=== PATIENT | female | born 1950 | race Caucasian/White ===

== ENCOUNTER 2018-10-15 15:54 | Emergency (ER) | payer OTHER, MEDICARE ==
[2018-10-15 16:04] VITALS: BP 146/61; PULSE 77; TEMP 98; BMI 29.9
--- NOTE | 2018-10-15 16:27 | PDOC ---
History of Present Illness - General History Source: Patient Exam Limitations: No Limitations - History of Present Illness Initial Comments: 10/15/18 16:58 The patient is a 67 year old female, who presents to the emergency department with 2 weeks of left knee pain. The patient states 2 weeks ago when she was in [place] she was standing on her bed trying to reach for an object when she fell off of the bed and landed straight down on her LLE injuring her left knee. The patient states she had an x-ray performed of the LLE and was advised she had a sprained ligament and to see her doctor after returning home. The patient states earlier this morning she had an outpatient MRI of the left knee which reported a lateral tibial plateau fracture. The patient states she notified her Dr Sherman who advised her to come to the ED for evaluation. The patient states she has been ambulating with a cane with pain. The patient also has an additional complaint of urinary urgency and frequency. The patient denies any flank pain or back pain. Denies any dysuria or hematuria. The patient denies chest pain, shortness of breath, headache and dizziness. Denies fever, chills, nausea, vomit, diarrhea and constipation. Allergies: NKA PCP: Dr Sherman <Navjot Ordoñez - Last Filed: 10/15/18 17:16> <Mery Pinon - Last Filed: 10/15/18 17:54> - General Chief Complaint: Injury Stated Complaint: LEFT KNEE PAIN Time Seen by Provider: 10/15/18 16:21 Past History <Navjot Ordoñez - Last Filed: 10/15/18 17:16> - Past Medical History COPD: No - Suicide/Smoking/Psychosocial Hx Smoking History: Never smoked Have you smoked in the past 12 months: No Information on smoking cessation initiated: No Hx Alcohol Use: No Drug/Substance Use Hx: No <Mery Pinon - Last Filed: 10/15/18 17:54> - Past Medical History Allergies/Adverse Reactions: Allergies Allergy/AdvReac Type Severity Reaction Status Date / Time No Known Allergies Allergy Verified 10/15/18 16:01 Review of Systems - Review of Systems Comments:: 10/15/18 17:01 GENERAL/CONSTITUTIONAL: No fever or chills. No weakness. HEAD, EYES, EARS, NOSE AND THROAT: No change in vision. No ear pain or discharge. No sore throat. CARDIOVASCULAR: No chest pain or shortness of breath. RESPIRATORY: No cough, wheezing, or hemoptysis. GASTROINTESTINAL: No nausea, vomiting, diarrhea or constipation. GENITOURINARY: (+) Urinary urgency and frequency. No dysuria or hematuria. MUSCULOSKELETAL: (+) Left knee pain. No neck or back pain. SKIN: No rash NEUROLOGIC: No headache, vertigo, loss of consciousness, or change in strength/ sensation. ENDOCRINE: No increased thirst. No abnormal weight change. HEMATOLOGIC/LYMPHATIC: No anemia, easy bleeding, or history of blood clots. ALLERGIC/IMMUNOLOGIC: No hives or skin allergy. <Navjot Ordoñez - Last Filed: 10/15/18 17:16> *Physical Exam - Vital Signs Last Vital Signs Temp Pulse Resp BP Pulse Ox 98 F 77 18 146/61 97 10/15/18 15:55 10/15/18 15:55 10/15/18 15:55 10/15/18 15:55 10/15/18 15:55 - Physical Exam Comments: 10/15/18 17:02 GENERAL: Awake, alert, and fully oriented, in no acute distress HEAD: No signs of trauma EYES: PERRLA, EOMI, sclera anicteric, conjunctiva clear ENT: Auricles normal inspection, hearing grossly normal, nares patent, oropharynx clear without exudates. Moist mucosa NECK: Normal ROM, supple, no lymphadenopathy, JVD, or masses LUNGS: Breath sounds equal, clear to auscultation bilaterally. No wheezes, and no crackles HEART: Regular rate and rhythm, normal S1 and S2, no murmurs, rubs or gallops ABDOMEN: Soft, nontender, normoactive bowel sounds. No guarding, no rebound. No masses BACK: No midline spinal tenderness. EXTREMITIES: Hip is nontender. Full range of motion of the left knee. (+) Lateral fibular tenderness to palpation. (+) Minimal medial tenderness. No effusion. No laxity. Left ankle is nontender with full range of motion. Full range of motion in all four extremities. No clubbing or cyanosis. No cords or erythema. NEUROLOGICAL: Cranial nerves II through XII intact. Normal speech. SKIN: No lacerations or erythema. Warm, Dry, normal turgor, no rashes or lesions noted. <Navjot Ordoñez - Last Filed: 10/15/18 17:16> - Vital Signs Last Vital Signs Temp Pulse Resp BP Pulse Ox 98 F 77 18 146/61 97 10/15/18 15:55 10/15/18 15:55 10/15/18 15:55 10/15/18 15:55 10/15/18 15:55 <Mery Pinon - Last Filed: 10/15/18 17:54> Medical Decision Making - Medical Decision Making 10/15/18 17:[address] Sherman at [address] Young, covering physician, returned page immediately. Case discussed. Call placed to Orthopedics Dr. Derrek Evangelista at 4 pm. Page returned immediately. Case discussed. <Navjot Ordoñez - Last Filed: 10/15/18 17:16> - Medical Decision Making 10/15/18 16:27 67 yo F with injury while in [place] 2 weeks agok, fell while standing on a bed , onto extended left knee. c/o knee pain. had eval in ed 2 weeks ago with xray negative. persistant pain, so had outpt mri today. called by dr. young for positive tibial plateau fx. mild pain, improved with tylenol. able to straingthen and bend. no hip or ankle injury. no new neck or back pain. on exam mils lateral and medial inferior knee ttp. no effusion or eccymosis, hip and ankle nt fom plan ortho consult will see in ed. xray. pain control 10/15/18 17:54 ua negative for uti. <Mery Pinon - Last Filed: 10/15/18 17:54> *DC/Admit/Observation/Transfer - Attestations Scribe Attestion: 10/15/18 17:03 Documentation prepared by Navjot Ordoñez, acting as biomedical equipment tech for Mery Pinon MD. <Navjot Ordoñez - Last Filed: 10/15/18 17:16> - Discharge Dispostion Decision to Admit order: No <Mery Pinon - Last Filed: 10/15/18 17:54> Diagnosis at time of Disposition: Tibial plateau fracture, left - Discharge Dispostion Disposition: HOME Condition at time of disposition: Improved - Referrals Referrals: Derrek Evangelista DO [Staff Physician] - - Patient Instructions Printed Discharge Instructions: DI for Tibial Plateau Fracture Additional Instructions: you should not put any weight on your left leg. elevate to reduce swelling when at rest. use crutches. take tylenol 500 mg every 6 hrs as you have been for pain. follow up with DR Alejo in 1 -2 weeks. call to schedule. see referral information for the phone number . return for any problems or concerns.
[2018-10-15] MEDS ORDERED: ACETAMINOPHEN 500 MG TABLET (FP) PO ONE (16:33)
[2018-10-15] MEDS ORDERED: ACETAMINOPHEN 500 MG TABLET (FP) ONE (16:35)
[2018-10-15 17:47] LABS: PH,URINE 5.5 (4.5-8); URINE APPEARANCE Clear; URINE BILIRUBIN Negative (NEGATIVE); URINE COLOR Yellow; URINE GLUCOSE (UA) Negative (NEGATIVE); URINE KETONE Negative (NEGATIVE); URINE LEUK ESTERASE TRACE (NEGATIVE); URINE NITRITE Negative (NEGATIVE); URINE PROTEIN Negative (NEGATIVE); URINE UROBILINOGEN 0.2 (0.2-1.0)
--- NOTE | 2018-10-15 18:35 | PN ---
Progress Note (short form) - Note Progress Note: ORTHOPEDIC SURGERY CONSULTATION NOTE CHIEF COMPLAINT Left leg pain HISTORY OF PRESENT ILLNESS Ms. Carey is a 67 year old female who presents to [facility] ER with a left leg pain. The orthopedic service was consulted for a left tibial plateau fracture. The injury occurred when she was in [place]. She took a fall onto her left leg, in an extended position, and consequently fell onto her bent knee. The patient notes significant sharp pain on the anterolateral tibial plateau, with radiation anteriorly and inferiorly. Her pain improves with rest. Denies any other injuries. Denies numbness, tingling or other constitutional complaints. The patient is retired.. Denies/Endorses tobacco use, drug use, alcohol abuse. The patient lives with her , and uses no assistive devices at baseline. She states she has been walking on her leg with a cane in [place] for the past 2 weeks. PAST MEDICAL HISTORY Denies SURGICAL HISTORY Denies FAMILY HISTORY Denies SOCIAL HISTORY Denies tobacco use, drug use, and alcohol abuse. MEDICATIONS Denies ALLERGIES NKDA REVIEW OF SYMPTOMS A twelve-point review of systems was performed and was negative except as noted in HPI. PHYSICAL EXAM Constitutional: Alert and oriented to person, place, and time. Appears well- developed and well-nourished. No acute distress, appropriate mood and affect. Bilateral Upper Extremity: No TTP all joints, FROM w/o pain all joints. Right Lower Extremity: No TTP all joints, FROM w/o pain all joints. Left Lower Extremity: Skin warm, dry, and intact; no lesions, rashes or ulcers noted. Muscle mass equal and symmetric to contralateral side. No atrophy noted. No masses or effusions noted. Tender to palpation at the proximal anterolateral portion of the tibia. She is nontender throughout rest of extremity. No cords or calf tenderness No significant calf/ankle edema. Full passive and active ROM, free from pain. Joints stable with no pathologic laxity. EHL/TA/GS motor intact; SILT distally; 2+ DP pulses; Cap refill brisk. Tone and reflexes normal. VITAL SIGNS Vital Signs Period Temp Pulse Resp BP Sys/Asif Pulse Ox Last 24 Hr 98 F 77 18 146/61 97 IMAGING I personally reviewed all radiographs of her left leg, and a Left knee MRI, They demonstrate a non-displaced left tibial plateau fracture. There are no dislocations, subluxations, bony lesions seen. There is minimal arthritis in the knee. ASSESSMENT AND PLAN Ms. Carey is a 67 year old female with a left tibial plateau fracture - non- displaced. - Pain Control - NWB LLE on crutches - A bulky balderrama knee immobilizer was placed on the patient's left leg and she tolerated it well. - The patient may remove the knee immobilizer while in bed, or while sitting at home. She is to reapply it when moving around or going outdoors. - The patient can follow up in our office in 1-2 weeks. She can call [phone] for an appointment. She will need to obtain X-rays before her office visit. - Rest/Ice/Elevate Left knee. Thank you for involving us in the care of your patient. Francois Fox, DO Orthopedic Surgery
[2018-10-15 19:13] LABS: URINE RBC 0-2 /hpf (0-3)
[2018-10-15 19:14] LABS: AMORP URATES 1+ /hpf (NONE SEEN); EPI CELLS FEW /HPF; URINE BACTERIA 1+ /hpf (NEGATIVE)
== END 2018-10-15 18:05 | disposition home or self-care (01) ==
LOC: FER 15:54
DX: S82.142A Displaced bicondylar fracture of left tibia, initial encounter for closed fracture (principal); X58.XXXA Exposure to other specified factors, initial encounter; Y93.89 Activity, other specified; Y92.89 Other specified places as the place of occurrence of the external cause
CPT/HCPCS: 73564-TC-LT-FY; 73590-TC-LT-FY; 73721-LT-TC; 81003; 81015; 99284-25

== ENCOUNTER 2021-11-04 09:41 | Inpatient (IN) | payer OTHER, MEDICARE ==
[2021-11-04] MEDS ORDERED: ACETAMINOPHEN 1000 MG/100 ML BAG IVPB ONE (11:14)
[2021-11-04] MEDS ORDERED: FAMOTIDINE 20 MG/50 ML IVPB 20 MG/50 ML MG IVPB ONE ×2 (11:14→11:48)
[2021-11-04] MEDS ORDERED: LACTATED RINGERS SOLUTION 1000 ML INFUS.BAG IV ONE (11:14)
[2021-11-04] MEDS ORDERED: MAG HYDROX/AL HYDROX/SIMETH 30 ML UNIT-DOSE CUP PO ONE (11:14)
[2021-11-04] MEDS ORDERED: ONDANSETRON 4 MG/2 ML VIAL IVPUSH ONE (12:06)
[2021-11-04] MEDS ORDERED: ONDANSETRON 4 MG/2 ML VIAL ONE (12:26)
[2021-11-04 12:32] LABS: URINE APPEARANCE CLEAR; URINE BILIRUBIN NEGATIVE (NEGATIVE); URINE COLOR YELLOW; URINE GLUCOSE (UA) NEGATIVE (NEGATIVE); URINE KETONE TRACE (NEGATIVE); URINE LEUK ESTERASE NEGATIVE (NEGATIVE); URINE NITRITE NEGATIVE (NEGATIVE); URINE PROTEIN NEGATIVE (NEGATIVE); URINE UROBILINOGEN 0.2 mg/dL (0.2-1.0)
[2021-11-04 13:06] LABS: BASO % 0.6 % (0-2.0); EOS % 0.2 % (0-4.5); HEMATOCRIT 40.5 % (32.4-45.2); HEMOGLOBIN 13.4 GM/dL (10.7-15.3); LYMPH % 10.9 % (8-40); MCH 29.6 pg (25.7-33.7); MCHC 33.1 g/dl (32.0-36.0); MEAN CELL VOLUME 89.3 fl (80-96); MEAN PLT VOLUME 9.3 fl (7.5-11.1); MONO % 3.9 % (3.8-10.2); NEUT % 84.4 % (42.8-82.8); PLATELET COUNT 319 10^3/uL (134-434); RBC 4.54 M/mm3 (3.60-5.2); RDW 14.4 % (11.6-15.6); WHITE BLOOD COUNT 11.6 K/mm3 (4.0-10.0)
[2021-11-04 13:21] LABS: BLOOD UREA NITROGEN 10.3 mg/dL (7-18)
[2021-11-04 13:22] LABS: ALBUMIN 2.8 g/dl (3.4-5.0)
[2021-11-04 13:24] LABS: CREATININE 0.6 mg/dL (0.55-1.3)
[2021-11-04 13:27] LABS: BILIRUBIN,TOTAL 0.3 mg/dL (0.2-1); TOT PROT 6.9 g/dl (6.4-8.2)
[2021-11-04] MEDS ORDERED: SODIUM CHLORIDE 1,000 ML IV SCH (13:45)
[2021-11-04] MEDS: SODIUM CHLORIDE 1,000 ML IV SCH (14:00)
[2021-11-04] MEDS ORDERED: ACETAMINOPHEN 325 MG TABLET (FP) PO PRN (20:25)
[2021-11-04 21:43] LABS: BASO % 0.9 % (0-2.0); EOS % 1.2 % (0-4.5); HEMATOCRIT 37.2 % (32.4-45.2); HEMOGLOBIN 12.6 GM/dL (10.7-15.3); LYMPH % 19.4 % (8-40); MEAN CELL VOLUME 88.1 fl (80-96); MEAN PLT VOLUME 8.7 fl (7.5-11.1); MONO % 7.9 % (3.8-10.2); NEUT % 70.6 % (42.8-82.8); PLATELET COUNT 261 10^3/uL (134-434); RBC 4.22 M/mm3 (3.60-5.2)
[2021-11-04 22:04] LABS: BLOOD UREA NITROGEN 8.9 mg/dL (7-18); CALCIUM 8.8 mg/dL (8.5-10.1); MAGNESIUM 2.2 mg/dL (1.8-2.4)
[2021-11-04 22:08] LABS: CREATININE 0.7 mg/dL (0.55-1.3)
[2021-11-05 08:45] LABS: BLOOD UREA NITROGEN 8.9 mg/dL (7-18); CALCIUM 8.6 mg/dL (8.5-10.1)
[2021-11-05 08:48] LABS: CREATININE 0.7 mg/dL (0.55-1.3)
[2021-11-05 08:59] LABS: BASO % 1.1 % (0-2.0); EOS % 2.7 % (0-4.5); HEMATOCRIT 36.9 % (32.4-45.2); HEMOGLOBIN 12.5 GM/dL (10.7-15.3); LYMPH % 25.4 % (8-40); MCHC 33.9 g/dl (32.0-36.0); MEAN CELL VOLUME 88.4 fl (80-96); MEAN PLT VOLUME 9.4 fl (7.5-11.1); MONO % 9.5 % (3.8-10.2); NEUT % 61.3 % (42.8-82.8); PLATELET COUNT 251 10^3/uL (134-434); RBC 4.17 M/mm3 (3.60-5.2); RDW 14.3 % (11.6-15.6); WHITE BLOOD COUNT 7.5 K/mm3 (4.0-10.0)
[2021-11-05] MEDS: DEXTROSE 5%-0.45% SALINE 1,000 ML IV SCH ×2 (10:43→22:15)
[2021-11-05 12:15] LABS: ALBUMIN 2.9 g/dl (3.4-5.0)
[2021-11-05 12:19] LABS: BILIRUBIN,DIRECT 0.1 mg/dL (0.0-0.2); BILIRUBIN,TOTAL 0.5 mg/dL (0.2-1)
[2021-11-05 12:20] LABS: TOT PROT 6.7 g/dl (6.4-8.2)
[2021-11-05] MEDS: SODIUM CHLORIDE 1,000 ML IV SCH (14:12)
[2021-11-05 18:05] VITALS: BMI 30.1
[2021-11-05] MEDS ORDERED: DEXTROSE 5%-WATER - 50 ML IVPB ONE (18:27)
[2021-11-05] MEDS ORDERED: PIPERACILLIN/TAZOBACTAM 3.375 GM VIAL IVPB ONE (18:27)
[2021-11-05] MEDS ORDERED: PT OWN MED DRAWER 7, Y5N ONE (18:27)
[2021-11-05] MEDS: PIPERACILLIN/TAZOB 3.375 GM 3.375 GM in DEXTROSE 5%-WATER - 50 ML IVPB SCH (18:33)
[2021-11-06] MEDS ORDERED: DEXTROSE 5%-WATER - 50 ML IVPB ONE ×3 (01:14→18:14)
[2021-11-06] MEDS ORDERED: PIPERACILLIN/TAZOBACTAM 3.375 GM VIAL IVPB ONE ×3 (01:14→18:14)
[2021-11-06] MEDS: PIPERACILLIN/TAZOB 3.375 GM 3.375 GM in DEXTROSE 5%-WATER - 50 ML IVPB SCH ×5 (01:37→18:21)
[2021-11-06 09:29] LABS: BASO % 1.2 % (0-2.0); EOS % 3.2 % (0-4.5); HEMATOCRIT 39.6 % (32.4-45.2); HEMOGLOBIN 13.2 GM/dL (10.7-15.3); LYMPH % 25.3 % (8-40); MCHC 33.3 g/dl (32.0-36.0); MEAN CELL VOLUME 89.9 fl (80-96); MEAN PLT VOLUME 9.2 fl (7.5-11.1); MONO % 8.7 % (3.8-10.2); NEUT % 61.6 % (42.8-82.8); PLATELET COUNT 265 10^3/uL (134-434); RBC 4.41 M/mm3 (3.60-5.2); RDW 14.3 % (11.6-15.6); WHITE BLOOD COUNT 6.7 K/mm3 (4.0-10.0)
[2021-11-06 09:47] LABS: ALBUMIN 3.2 g/dl (3.4-5.0); CALCIUM 9.2 mg/dL (8.5-10.1)
[2021-11-06 09:48] LABS: BLOOD UREA NITROGEN 7.1 mg/dL (7-18)
[2021-11-06 09:51] LABS: CREATININE 0.9 mg/dL (0.55-1.3); TOT PROT 7.3 g/dl (6.4-8.2)
[2021-11-06 09:52] LABS: BILIRUBIN,TOTAL 0.5 mg/dL (0.2-1)
[2021-11-06] MEDS: DEXTROSE 5%-0.45% SALINE 1,000 ML IV SCH (13:07)
[2021-11-07] MEDS ORDERED: PIPERACILLIN/TAZOBACTAM 3.375 GM VIAL IVPB ONE ×3 (01:00→17:00)
[2021-11-07] MEDS ORDERED: DEXTROSE 5%-WATER - 50 ML IVPB ONE ×3 (01:00→17:00)
[2021-11-07] MEDS: PIPERACILLIN/TAZOB 3.375 GM 3.375 GM in DEXTROSE 5%-WATER - 50 ML IVPB SCH ×3 (01:10→17:26)
[2021-11-07] MEDS: DEXTROSE 5%-0.45% SALINE 1,000 ML IV SCH ×2 (04:20→17:27)
[2021-11-07 08:49] LABS: CALCIUM 9.3 mg/dL (8.5-10.1)
[2021-11-07 08:53] LABS: CREATININE 0.9 mg/dL (0.55-1.3)
[2021-11-08] MEDS ORDERED: PIPERACILLIN/TAZOBACTAM 3.375 GM VIAL IVPB ONE ×5 (00:38→17:30)
[2021-11-08] MEDS ORDERED: DEXTROSE 5%-WATER - 50 ML IVPB ONE ×4 (00:39→15:30)
[2021-11-08] MEDS: PIPERACILLIN/TAZOB 3.375 GM 3.375 GM in DEXTROSE 5%-WATER - 50 ML IVPB SCH ×3 (01:27→23:11)
[2021-11-08] MEDS: DEXTROSE 5%-0.45% SALINE 1,000 ML IV SCH ×3 (05:58→21:17)
[2021-11-08] MEDS ORDERED: LIDOCAINE 1%/EPI 1:100000 (50 ML MULTI DOSE VIAL) ONE (16:17)
[2021-11-08] MEDS ORDERED: PROPOFOL 20 ML ONE (16:57)
[2021-11-08] MEDS ORDERED: MIDAZOLAM HCL 2 MG/2 ML SINGLE DOSE VIAL ONE (16:58)
[2021-11-08] MEDS ORDERED: SUCCINYLCHOLINE CHLORIDE 200 MG/10 ML SYRINGE ONE (16:58)
[2021-11-08] MEDS ORDERED: ROCURONIUM BROMIDE 50 MG/5 ML SYRINGE ONE (17:20)
[2021-11-08] MEDS ORDERED: BUPIVACAINE HCL/PF 0.5% (5MG/ML) 10 ML VIAL IJ ONE (17:33)
[2021-11-08] MEDS ORDERED: DEXAMETHASONE SOD PHOSPHATE 4 MG/1 ML VIAL ONE (17:34)
[2021-11-08] MEDS ORDERED: NEOSTIGMINE METHYLSULFATE 0.5 MG/ML - 10 ML MDV ONE (18:15)
[2021-11-08] MEDS ORDERED: GLYCOPYRROLATE 0.2 MG/1 ML VIAL ONE (18:15)
[2021-11-08] MEDS ORDERED: ONDANSETRON 4 MG/2 ML VIAL IVPUSH PRN (18:40)
[2021-11-08] MEDS ORDERED: PROMETHAZINE HCL 25 MG/1 ML VIAL IVPUSH PRN (18:40)
[2021-11-08] MEDS ORDERED: oxyCODONE HCL 5 MG TABLET PO PRN (18:40)
[2021-11-08] MEDS ORDERED: HYDROmorphone HCl 2 MG/ML VIAL ONE (19:18)
[2021-11-08] MEDS ORDERED: HYDROmorphone HCl 2 MG/ML VIAL IVPUSH ONE ×3 (19:19→19:50)
[2021-11-08] MEDS ORDERED: KETOROLAC TROMETHAMINE 30 MG/1 ML VIAL ONE (19:33)
[2021-11-08] MEDS ORDERED: KETOROLAC TROMETHAMINE 15 MG/ML VIAL IVPUSH ONE (19:35)
[2021-11-08] MEDS ORDERED: ACETAMINOPHEN INJECTION 100 ML IVPB ONE (19:35)
[2021-11-08] MEDS ORDERED: ACETAMINOPHEN 1000 MG/100 ML BAG IVPB ONE (19:36)
[2021-11-08] MEDS ORDERED: HYDROmorphone HCl 2 MG/ML VIAL IVPB ONE (20:06)
[2021-11-08] MEDS: HEPARIN NA (PORCINE) 5,000 UNITS/ML 1ML VIAL SQ SCH (21:19)
[2021-11-08] MEDS: oxyCODONE HCL 5 MG TABLET PO PRN (23:56)
[2021-11-09] MEDS ORDERED: KETOROLAC TROMETHAMINE 15 MG/ML VIAL IVPUSH PRN (01:00)
[2021-11-09] MEDS: HEPARIN NA (PORCINE) 5,000 UNITS/ML 1ML VIAL SQ SCH ×4 (06:55→21:21)
[2021-11-09 10:44] LABS: BASO % 0.6 % (0-2.0); EOS % 0.4 % (0-4.5); HEMATOCRIT 39.9 % (32.4-45.2); HEMOGLOBIN 13.5 GM/dL (10.7-15.3); LYMPH % 16.6 % (8-40); MCH 30.1 pg (25.7-33.7); MCHC 33.7 g/dl (32.0-36.0); MEAN CELL VOLUME 89.2 fl (80-96); MEAN PLT VOLUME 9.2 fl (7.5-11.1); MONO % 4.6 % (3.8-10.2); NEUT % 77.8 % (42.8-82.8); PLATELET COUNT 318 10^3/uL (134-434); RBC 4.47 M/mm3 (3.60-5.2); RDW 14.1 % (11.6-15.6); WHITE BLOOD COUNT 12.8 K/mm3 (4.0-10.0)
[2021-11-09 11:02] LABS: ALBUMIN 3.4 g/dl (3.4-5.0); BLOOD UREA NITROGEN 8.4 mg/dL (7-18); CALCIUM 9.3 mg/dL (8.5-10.1)
[2021-11-09 11:07] LABS: BILIRUBIN,TOTAL 0.3 mg/dL (0.2-1); TOT PROT 7.5 g/dl (6.4-8.2)
[2021-11-09] MEDS: ACETAMINOPHEN 325 MG TABLET (FP) PO PRN (15:11)
[2021-11-09] MEDS: DEXTROSE 5%-0.45% SALINE 1,000 ML IV SCH (19:59)
[2021-11-09] MEDS: oxyCODONE HCL 5 MG TABLET PO PRN (21:21)
[2021-11-10] MEDS: oxyCODONE HCL 5 MG TABLET PO PRN ×3 (05:47→18:18)
[2021-11-10] MEDS: HEPARIN NA (PORCINE) 5,000 UNITS/ML 1ML VIAL SQ SCH ×3 (05:48→21:17)
[2021-11-10] MEDS: DEXTROSE 5%-0.45% SALINE 1,000 ML IV SCH (18:19)
[2021-11-10] MEDS: ACETAMINOPHEN 325 MG TABLET (FP) PO PRN (21:15)
[2021-11-11] MEDS: HEPARIN NA (PORCINE) 5,000 UNITS/ML 1ML VIAL SQ SCH (06:32)
[2021-11-11 09:42] LABS: CALCIUM 8.8 mg/dL (8.5-10.1)
[2021-11-11 09:43] LABS: BASO % 1.3 % (0-2.0); BLOOD UREA NITROGEN 7.8 mg/dL (7-18); EOS % 2.2 % (0-4.5); HEMATOCRIT 38.4 % (32.4-45.2); HEMOGLOBIN 12.9 GM/dL (10.7-15.3); LYMPH % 29.9 % (8-40); MCH 29.8 pg (25.7-33.7); MCHC 33.5 g/dl (32.0-36.0); MEAN PLT VOLUME 9.6 fl (7.5-11.1); MONO % 7.5 % (3.8-10.2); NEUT % 59.1 % (42.8-82.8); PLATELET COUNT 250 10^3/uL (134-434); RBC 4.32 M/mm3 (3.60-5.2); RDW 14.7 % (11.6-15.6); WHITE BLOOD COUNT 7.4 K/mm3 (4.0-10.0)
[2021-11-11 09:45] LABS: CREATININE 0.8 mg/dL (0.55-1.3)
[2021-11-11 09:46] LABS: BILIRUBIN,TOTAL 0.4 mg/dL (0.2-1); TOT PROT 6.7 g/dl (6.4-8.2)
[2021-11-11] MEDS ORDERED: SIMETHICONE 80 MG TAB.CHEW (FP) PO PRN (10:04)
[2021-11-11] MEDS: oxyCODONE HCL 5 MG TABLET PO PRN (12:31)
[2021-11-11 15:29] VITALS: BP 128/58; PULSE 73; TEMP 98.6
== END 2021-11-11 15:51 | disposition home or self-care (01) | DRG 418 ==
LOC: JER 09:41 → JERBED 17:44 → J7W 11-05 16:35
PROVIDERS: ATTEND Family Medicine
PROC: 0DN94ZZ Release Duodenum, Percutaneous Endoscopic Approach (ICD-10-PCS; 2021-11-08)
PROC: 0FT44ZZ Resection of Gallbladder, Percutaneous Endoscopic Approach (ICD-10-PCS; principal; 2021-11-08 14:00)
DX: K80.63 Calculus of gallbladder and bile duct with acute cholecystitis with obstruction (principal); E87.1 Hypo-osmolality and hyponatremia; R19.7 Diarrhea, unspecified; R11.2 Nausea with vomiting, unspecified; D72.829 Elevated white blood cell count, unspecified; E78.5 Hyperlipidemia, unspecified; K66.0 Peritoneal adhesions (postprocedural) (postinfection); K58.9 Irritable bowel syndrome, unspecified; E66.9 Obesity, unspecified; Z68.30 Body mass index [BMI] 30.0-30.9, adult; K76.0 Fatty (change of) liver, not elsewhere classified
CPT/HCPCS: 36415; 70450-TC; 74177-TC; 76705-TC; 78226-TC; 80048; 80053; 80076; 81003; 82550; 83690; 83735; 83930; 84484; 85025; 87086; 88300-TC; 93005; 93010; 94760; 99285-25; A9537; C9803; J0131; J1644; Q9967; U0003; U0005

== ENCOUNTER 2023-01-14 12:55 | Emergency (ER) | payer OTHER, MEDICARE ==
[2023-01-14 13:26] VITALS: BP 145/68; PULSE 73; RESP 18; TEMP 97.8; BMI 30.4
== END 2023-01-14 15:19 | disposition home or self-care (01) ==
LOC: JERFT 12:55
DX: M25.562 Pain in left knee (principal)
CPT/HCPCS: 73560-TC-RT-FY; 99283-25

== ENCOUNTER 2023-04-03 06:03 | Day surgery (SDC) | payer OTHER, MEDICARE ==
[2023-03-30 18:07] VITALS: BMI 31.4
[2023-04-03 06:57] VITALS: RESP 16
[2023-04-03] MEDS ORDERED: BUPIVACAINE HCL/PF 2.5 MG/ML - 30 ML VIAL IJ ONE (07:22)
[2023-04-03] MEDS ORDERED: EPINEPHrine 1:1,000 1,000 MCG/ML ML ONE (07:22)
[2023-04-03] MEDS ORDERED: LIDOCAINE HCL/PF 2% SDV 5ML VIAL ONE (07:24)
[2023-04-03] MEDS ORDERED: PROPOFOL 40 ML ONE (07:24)
[2023-04-03] MEDS ORDERED: MIDAZOLAM HCL 2 MG/2 ML SINGLE DOSE VIAL ONE (07:24)
[2023-04-03] MEDS ORDERED: ceFAZolin SODIUM 1 GM VIAL ONE (07:24)
[2023-04-03] MEDS ORDERED: ONDANSETRON 4 MG/2 ML VIAL ONE (07:48)
[2023-04-03] MEDS ORDERED: DEXAMETHASONE SOD PHOSPHATE 4 MG/1 ML VIAL ONE (07:48)
[2023-04-03] MEDS ORDERED: KETOROLAC TROMETHAMINE 30 MG/1 ML VIAL ONE (08:23)
[2023-04-03] MEDS ORDERED: oxyCODONE HCL 5 MG TABLET PO PRN (09:03)
[2023-04-03] MEDS ORDERED: ACETAMINOPHEN 1000 MG/100 ML BAG IVPB PRN (09:03)
[2023-04-03] MEDS ORDERED: ONDANSETRON 4 MG/2 ML VIAL IVPUSH PRN (09:03)
[2023-04-03] MEDS ORDERED: hydrALAZINE HCL 20 MG/ML VIAL IM PRN (09:04)
[2023-04-03] MEDS ORDERED: FENTANYL CITRATE/PF 50 MCG/ML VIAL ONE ×4 (09:07→09:35)
[2023-04-03] MEDS ORDERED: LACTATED RINGERS SOLUTION 1,000 ML IV SCH (09:15)
[2023-04-03] MEDS ORDERED: HYDROmorphone HCL/PF 1 MG/ML VIAL ONE (09:45)
[2023-04-03] MEDS ORDERED: HYDROmorphone HCl 2 MG/ML VIAL IVPUSH PRN (09:48)
[2023-04-03 11:53] VITALS: TEMP 98.2
[2023-04-03 11:58] VITALS: BP 143/79; PULSE 78
== END 2023-04-03 12:10 | disposition home or self-care (01) ==
LOC: FASU 06:03
PROVIDERS: ATTEND Orthopaedic Surgery Sports Medicine
PROC: 0SBC4ZZ Excision of Right Knee Joint, Percutaneous Endoscopic Approach (ICD-10-PCS; principal; 2023-04-03 08:07)
DX: S83.241A Other tear of medial meniscus, current injury, right knee, initial encounter (principal); M17.11 Unilateral primary osteoarthritis, right knee; X58.XXXA Exposure to other specified factors, initial encounter; Y93.9 Activity, unspecified; Y92.9 Unspecified place or not applicable
CPT/HCPCS: 94760

== ENCOUNTER 2023-04-20 15:06 | Inpatient (IN) | payer OTHER, MEDICARE ==
[2023-04-20 15:17] VITALS: BMI 31.1
[2023-04-20] MEDS ORDERED: ONDANSETRON 4 MG/2 ML VIAL ONE (15:29)
[2023-04-20] MEDS ORDERED: SODIUM CHLORIDE 1,000 ML IV STA (15:29)
[2023-04-20] MEDS ORDERED: FAMOTIDINE 20 MG/50 ML IVPB 20 MG/50 ML MG IVPB ONE ×2 (15:29→15:48)
[2023-04-20] MEDS ORDERED: ONDANSETRON 4 MG/2 ML VIAL IVPUSH ONE (15:30)
[2023-04-20] MEDS ORDERED: LACTATED RINGERS SOLUTION 1,000 ML/1,000 ML INFUS.BAG IV SCH ×2 (16:00→17:00)
[2023-04-20 16:06] LABS: BASO % 0.3 % (0-2.0); EOS % 0.1 % (0-4.5); HEMATOCRIT 42.9 % (32.4-45.2); HEMOGLOBIN 13.9 GM/dL (10.7-15.3); LYMPH % 4.1 % (8-40); MCHC 32.5 g/dl (32.0-36.0); MEAN CELL VOLUME 89.2 fl (80-96); MONO % 6.6 % (3.8-10.2); NEUT % 88.9 % (42.8-82.8); PLATELET COUNT 342 10^3/uL (134-434); RBC 4.81 M/mm3 (3.60-5.2); RDW 14.4 % (11.6-15.6); WHITE BLOOD COUNT 12.1 K/mm3 (4.0-10.0)
[2023-04-20 16:25] LABS: POTASSIUM 4.2 mmol/L (3.5-5.1)
[2023-04-20 16:27] LABS: MAGNESIUM 2.2 mg/dL (1.8-2.4)
[2023-04-20 16:28] LABS: BLOOD UREA NITROGEN 24.6 mg/dL (7-18); CALCIUM 9.4 mg/dL (8.5-10.1)
[2023-04-20 16:29] LABS: ALBUMIN 3.8 g/dl (3.4-5.0)
[2023-04-20 16:31] LABS: BILIRUBIN,DIRECT 0.1 mg/dL (0.0-0.2); CREATININE 1.2 mg/dL (0.55-1.3)
[2023-04-20 16:32] LABS: PHOSPHOROUS 3.2 mg/dL (2.5-4.9); TOT PROT 8.2 g/dl (6.4-8.2)
[2023-04-20 16:33] LABS: BILIRUBIN,TOTAL 0.3 mg/dL (0.2-1)
[2023-04-20 16:35] LABS: LACTIC ACID 3.8 mmol/L (0.4-2.0)
[2023-04-20 18:53] LABS: URINE APPEARANCE CLEAR; URINE BILIRUBIN NEGATIVE (NEGATIVE); URINE COLOR YELLOW; URINE GLUCOSE (UA) NEGATIVE (NEGATIVE)
[2023-04-20 18:54] LABS: EPI CELLS 43.6 /uL (0-25.1); HYALINE CASTS 1.15 /uL (0-3.1); PH,URINE 5.5 (5.0-8.0); URINE BACTERIA 662.8 /uL (0-1359); URINE KETONE NEGATIVE (NEGATIVE); URINE LEUK ESTERASE 1+ (NEGATIVE); URINE NITRITE NEGATIVE (NEGATIVE); URINE PROTEIN NEGATIVE (NEGATIVE); URINE RBC 32.3 /uL (0-23.9); URINE UROBILINOGEN 0.2 mg/dL (0.2-1.0); URINE WBC 40.1 /uL (0-25.8)
[2023-04-20 19:11] LABS: LACTIC ACID 3.4 mmol/L (0.4-2.0)
[2023-04-20] MEDS ORDERED: LACTATED RINGERS SOLUTION 1,000 ML/1,000 ML INFUS.BAG IV STA ×2 (19:48→20:10)
[2023-04-20] MEDS ORDERED: ACETAMINOPHEN 325 MG TABLET (FP) PO PRN (20:40)
[2023-04-20] MEDS ORDERED: ONDANSETRON 4 MG/2 ML VIAL IVPUSH PRN (21:30)
[2023-04-21] MEDS ORDERED: TRIMETHOBENZAMIDE HCL 200MG/2ML INJ IM PRN (01:00)
[2023-04-21] MEDS ORDERED: LOPERAMIDE HCL 1 MG/5 ML UNIT DOSE CUP PO ONE (05:03)
[2023-04-21] MEDS ORDERED: BISMUTH SUBSALICYLATE 524 MG/30 ML PO PRN (05:09)
[2023-04-21] MEDS ORDERED: LOPERAMIDE HCL 1 MG/7.5 ML LIQUID PO ONE (05:15)
[2023-04-21] MEDS: SODIUM CHLORIDE 1,000 ML IV SCH ×2 (05:18→23:08)
[2023-04-21 08:45] LABS: BASO % 0.5 % (0-2.0); EOS % 1.8 % (0-4.5); HEMATOCRIT 38.1 % (32.4-45.2); HEMOGLOBIN 12.7 GM/dL (10.7-15.3); LYMPH % 16.2 % (8-40); MCHC 33.4 g/dl (32.0-36.0); MEAN CELL VOLUME 89.7 fl (80-96); MEAN PLT VOLUME 9.9 fl (7.5-11.1); MONO % 14.4 % (3.8-10.2); NEUT % 67.1 % (42.8-82.8); PLATELET COUNT 197 10^3/uL (134-434); RBC 4.25 M/mm3 (3.60-5.2); RDW 14.1 % (11.6-15.6); WHITE BLOOD COUNT 6.3 K/mm3 (4.0-10.0)
[2023-04-21 09:08] LABS: POTASSIUM 3.7 mmol/L (3.5-5.1)
[2023-04-21 09:11] LABS: CALCIUM 8.7 mg/dL (8.5-10.1)
[2023-04-21 09:12] LABS: BLOOD UREA NITROGEN 20.5 mg/dL (7-18)
[2023-04-21 09:15] LABS: CREATININE 0.8 mg/dL (0.55-1.3)
[2023-04-21] MEDS ORDERED: LOPERAMIDE HCL 2 MG CAPSULE PO PRN (11:58)
[2023-04-21] MEDS ORDERED: BANATROL PLUS POWDER PACKET PO SCH (14:00)
[2023-04-21] MEDS: BISMUTH SUBSALICYLATE 524 MG/30 ML PO PRN (18:37)
[2023-04-22 07:54] VITALS: RESP 18
[2023-04-22] MEDS: SODIUM CHLORIDE 1,000 ML IV SCH ×2 (08:46→17:07)
[2023-04-22] MEDS: ENOXAPARIN NA (PORCINE) 40 MG/0.4 ML DISP.SYRIN SQ SCH (09:57)
[2023-04-22 10:52] LABS: POTASSIUM 3.9 mmol/L (3.5-5.1)
[2023-04-22 11:08] LABS: BLOOD UREA NITROGEN 13.5 mg/dL (7-18); CALCIUM 8.5 mg/dL (8.5-10.1)
[2023-04-22 11:11] LABS: CREATININE 0.7 mg/dL (0.55-1.3)
[2023-04-22] MEDS: BISMUTH SUBSALICYLATE 524 MG/30 ML PO PRN (11:53)
[2023-04-23] MEDS: SODIUM CHLORIDE 1,000 ML IV SCH ×2 (01:00→01:31)
[2023-04-23] MEDS ORDERED: MAG HYDROX/AL HYDROX/SIMETH 30 ML UNIT-DOSE CUP PO ONE (01:12)
[2023-04-23] MEDS ORDERED: ACETAMINOPHEN 1000 MG/100 ML BAG IVPB ONE (01:12)
[2023-04-23] MEDS ORDERED: LOPERAMIDE HCL 2 MG CAPSULE PO PRN (10:41)
[2023-04-23] MEDS: ENOXAPARIN NA (PORCINE) 40 MG/0.4 ML DISP.SYRIN SQ SCH (11:36)
[2023-04-23] MEDS ORDERED: LIDOCAINE HCL 5% TOP OINTMENT 50 GM TUBE TP ONE (18:04)
[2023-04-23] MEDS ORDERED: NEOMYCIN/POLYMYXIN/BACITRACIN (TRIPLE ANTIBIOTIC) 28 GM OINTMENT TP PRN (18:04)
[2023-04-24 08:28] LABS: POTASSIUM 3.7 mmol/L (3.5-5.1)
[2023-04-24 08:35] LABS: CALCIUM 8.8 mg/dL (8.5-10.1)
[2023-04-24 08:36] LABS: BLOOD UREA NITROGEN 8.3 mg/dL (7-18); MAGNESIUM 1.9 mg/dL (1.8-2.4)
[2023-04-24 08:39] LABS: CREATININE 0.7 mg/dL (0.55-1.3)
[2023-04-24] MEDS: ENOXAPARIN NA (PORCINE) 40 MG/0.4 ML DISP.SYRIN SQ SCH (10:30)
[2023-04-25 08:34] VITALS: BP 174/79; PULSE 68; TEMP 98.4
== END 2023-04-25 08:55 | disposition home or self-care (01) | DRG 392 ==
LOC: JER 15:06 → JERBED 20:07 → J6S 23:34 → OBSVTOIN 04-22 13:38
PROVIDERS: ADMIT Internal Medicine; ATTEND Family Medicine
DX: A08.4 Viral intestinal infection, unspecified (principal); J98.11 Atelectasis; D72.829 Elevated white blood cell count, unspecified; R55 Syncope and collapse
CPT/HCPCS: 0241U-QW; 36415; 71045-TC-FY; 74174-TC; 80048; 80053; 81003; 82248; 83605; 83690; 83735; 84100; 84484; 85025; 86140; 87045; 87046; 87205; 87324; 87449; 87798; 93005; 93010; 99285-25; G0378; Q9967

== ENCOUNTER 2024-01-18 04:48 | Day surgery (SDC) | payer OTHER ==
[2024-01-14 11:40] VITALS: BMI 32.1
[2024-01-18 12:13] VITALS: TEMP 97.8
[2024-01-18 12:32] VITALS: RESP 16
[2024-01-18 12:40] VITALS: BP 146/62; PULSE 67
== END 2024-01-18 12:52 | disposition home or self-care (01) ==
LOC: JASU-ENDO 04:48
PROVIDERS: ATTEND Internal Medicine Gastroenterology
PROC: 0DBM8ZX Excision of Descending Colon, Via Natural or Artificial Opening Endoscopic, Diagnostic (ICD-10-PCS; 2024-01-18)
PROC: 0DBK8ZX Excision of Ascending Colon, Via Natural or Artificial Opening Endoscopic, Diagnostic (ICD-10-PCS; principal; 2024-01-18 11:00)
DX: Z12.11 Encounter for screening for malignant neoplasm of colon (principal); D12.2 Benign neoplasm of ascending colon; D12.4 Benign neoplasm of descending colon; K64.8 Other hemorrhoids; K57.30 Diverticulosis of large intestine without perforation or abscess without bleeding
CPT/HCPCS: 88305-TC

== ENCOUNTER 2025-03-18 21:04 | Emergency (ER) | payer OTHER ==
[2025-03-18 21:12] VITALS: BP 160/50; PULSE 94; RESP 16; TEMP 99; BMI 32.7
== END 2025-03-18 22:28 | disposition home or self-care (01) ==
LOC: FER 21:04
DX: J20.9 Acute bronchitis, unspecified (principal); R50.9 Fever, unspecified; R05.9 Cough, unspecified
CPT/HCPCS: 99283-25